=== PATIENT | male | born 1995 | race Caucasian/White ===

== ENCOUNTER 2016-07-24 11:36 | Emergency (ER) | payer OTHER ==
[~2016-07-24] VITALS: Ht 160 cm; Wt 52.2 kg
[2016-07-24 12:08] VITALS: BP 118/69
--- NOTE | 2016-07-24 12:27 | NUR ---
Patient taken to XRAY via wheelchair per tech.
--- NOTE | 2016-07-24 12:42 | NUR ---
PATIENT TO BED 07 FROM XRAY
--- NOTE | 2016-07-24 12:43 | NUR ---
DR. DUNLAP EVALUATES PT AT BEDSIDE.
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
--- NOTE | 2016-07-24 13:25 | NUR ---
DR. GERMÁN DELCIDAULATES PT AT BEDSIDE.
--- NOTE | 2016-07-24 13:26 | NUR ---
Rocio vazquez in ED - 07/24/[address] DUNLAP AT [facility].
[2016-07-24 13:41] VITALS: BP 100/66
--- NOTE | 2016-07-24 13:46 | NUR ---
Patient discharged with v/s stable. Written and verbal after care instructions given and explained. Patient alert, oriented and verbalized understanding of instructions. Wheel Chair Assisted with to car. All questions addressed prior to discharge. ID band removed. Patient advised to follow up with PMD. Rx of MOTRIN 600 MG TABLET, 1 TAB, TID BY MOUTH given. Patient educated on indication of medication including possible reaction and side effects. Opportunity to ask questions provided and answered.
== END 2016-07-24 13:46 | disposition home or self-care (01) ==
LOC: MED 11:36
DX: S70.11XA Contusion of right thigh, initial encounter (principal); V19.3XXA Pedal cyclist (driver) (passenger) injured in unspecified nontraffic accident, initial encounter; Y92.89 Other specified places as the place of occurrence of the external cause
CPT/HCPCS: 73552; 99284; Q0092